=== PATIENT | female | born 1965 | race African-American/Black ===

== ENCOUNTER 2023-06-10 19:27 | Emergency (ER) | payer OTHER, SELFPAY ==
[2023-06-10 19:46] VITALS: BP 138/71; PULSE 103; RESP 18; TEMP 37.6; O2SAT 100
--- NOTE | 2023-06-10 19:48 | ED.GENADULT ---
HPI - General Adult General Chief complaint: Upper Respiratory Infection Stated complaint: cough,pain r side of chest Time Seen by Provider: 06/10/23 19:47 Source: patient, RN notes reviewed and old records reviewed Mode of arrival: ambulatory Limitations: no limitations History of Present Illness HPI narrative: 57-year-old female presents to the [facility] with complaints of a cough since yesterday. Patient states that she left work yesterday and went to bed Patient states that today she started with some right chest discomfort only when coughing. Denies any radiation of discomfort. Denies any shortness of breath. Reports that she had a fever 1 at 6:00 p.m. and took some ibuprofen. Has been taking Mucinex since yesterday when her symptoms started. Verbalizes concern for influenza Onset (ago): day(s) (1) Treatments prior to arrival: NSAID and other (Mucinex) Related Data Home Medications Medication Instructions Recorded Confirmed gabapentin 300 mg capsule 300 mg PO HS 06/10/23 06/10/23 hydrochlorothiazide 12.5 mg tablet 12.5 mg PO DAILY 06/10/23 06/10/23 lisinopril 10 mg tablet 10 mg PO DAILY 06/10/23 06/10/23 phentermine 37.5 mg capsule 37.5 mg PO DAILY 06/10/23 06/10/23 tirzepatide (weight loss) 2.5 2.5 mg subcut [id number] 06/10/23 06/10/23 mg/0.5 mL subcutaneous pen injector (Zepbound) Allergies Allergy/AdvReac Type Severity Reaction Status Date / Time No Known Allergies Allergy Verified 06/10/23 20:13 Review of Systems Review of Systems: All systems reviewed & are unremarkable except as noted in HPI and below Constitutional: Constitutional: Reports no additional constitutional complaints Eyes: Eyes: Reports no additional eye complaints ENT: Reports system reviewed and no additional complaints, except as documented Cardiovascular: Cardiovascular: Reports no additional cardiovascular complaints, Denies chest pain and Denies dyspnea Respiratory: Respiratory: Reports as per HPI, Denies chest congestion, Reports cough, Reports pain with cough and Denies dyspnea Gastrointestinal: Gastrointestinal: Reports no additional gastrointestinal complaints, Denies abdominal pain, Denies nausea and Denies vomiting Musculoskeletal: Musculoskeletal: Reports no additional musculoskeletal complaints Integumentary/Breasts: Skin/Breast: Reports system reviewed and no additional complaints, except as docu Neurologic: Reports system reviewed and no additional complaints, except as documented Psychiatric: Psychiatric: Reports no additional psychiatric complaints Allergic/Immunologic: Allergic/Immunologic: Reports no additional allergic/immunologic complaints PMFSH Past Medical History Medical History History of primary hypertension Hydrocephalus with operating shunt As a child Tibia fracture Orthopedic surgical repair Surgical History Surgical History (Updated 06/10/23 @ 20:30 by Teri Fan APRN) H/O: hysterectomy History of right hip replacement Hx of cholecystectomy Comments At the time of my signature, I reviewed and agree with the nursing past medical, surgical, social, and family history. There is no relevant family history pertinent to the patient complaint. Exam Const: General: cooperative, healthy appearing, comfortable, no acute distress, well developed, alert and well nourished Nutritional Appearance: well nourished and obese Orientation/consciousness: patient oriented x3 Limitations: no limitations HENMT: Head: normal to inspection Ears: hearing grossly normal bilaterally, external ears normal, TM's normal bilaterally, EAC's normal, mastoids normal and no periauricular adenopathy Face/Nose/Sinus: Normal external nose present, Normal nares present, Normal nasal mucous membranes and turbinates present, normal facial exam and face symmetric Face and sinus: normal facial exam and face symmetric Mouth: Yes Normal oral and palatal mucosa pres
== END 2023-06-10 20:20 | disposition home or self-care (01) ==
PROVIDERS: Emergency Provider Nurse Practitioner; PCP Internal Medicine
DX: J10.1 Influenza due to other identified influenza virus with other respiratory manifestations (principal); Z20.822 Contact with and (suspected) exposure to COVID-19; I10 Essential (primary) hypertension; Z96.641 Presence of right artificial hip joint
CPT/HCPCS: 87426; 87804; 99213; G0463

== ENCOUNTER 2023-12-17 19:56 | Emergency (ER) | payer OTHER, SELFPAY ==
[2023-12-17 19:59] VITALS: BP 139/76; PULSE 61; RESP 20; TEMP 36.1; O2SAT 100
== END 2023-12-17 20:20 | disposition left against medical advice (07) ==
LOC: ANHED 21:12
PROVIDERS: PCP Internal Medicine
DX: R10.9 Unspecified abdominal pain (principal); R07.81 Pleurodynia
CPT/HCPCS: 99199

== ENCOUNTER 2023-12-18 17:49 | Emergency (ER) | payer OTHER, SELFPAY ==
[2023-12-18 17:53] VITALS: BP 133/54; PULSE 60; RESP 14; TEMP 36.6; O2SAT 100
== END 2023-12-18 19:37 | disposition left against medical advice (07) ==
LOC: ANHED 19:36
PROVIDERS: Emergency Provider Physician Assistant; PCP Internal Medicine
DX: R10.9 Unspecified abdominal pain (principal)
CPT/HCPCS: 99199

== ENCOUNTER 2023-12-19 20:26 | Emergency (ER) | payer OTHER, MEDICAID, SELFPAY ==
--- NOTE | ~2023-12-19 | CT_ITS ---
CT abdomen pelvis wo con Ordering provider: Christine Payne MD History: 58 years Female with . bilateral flank pain . Comparison: None. Technique: CT abdomen and pelvis without IV and without oral contrast. Automated exposure control and iterative reconstruction technique were employed. The dose-length product was 849.07 mGy-cm. Findings: VISUALIZED LOWER CHEST: Calcification in the pericardium on the left side UPPER ABDOMINAL ORGANS: Liver: Normal. Gallbladder: Status post cholecystectomy. Spleen: Normal. Stomach/duodenum: Normal. Pancreas: Normal. Adrenals: Normal. Kidneys: Normal. PELVIC ORGANS: The bladder is underfilled. BOWEL AND MESENTERY: Colon: No evidence of diverticulitis. Appendix is not demonstrated. Fecal material is seen in the col on suggestive of constipation. Small Bowel: Normal. No obstruction. Peritoneum/mesentery: No free air or free fluid. No mesenteric lymphadenopathy. Catheter is seen entering anteriorly and the tipseen in the left side of the pelvis. RETROPERITONEUM: Normal aorta. No retroperitoneal lymphadenopathy. MUSCULOSKELETAL: Superficial soft tissues: Small fat-containing umbilical hernia. Otherwise, The superficial soft tiss ues are normal. Bones: Age appropriate degenerative changes of the spine. Right hip arthroplasty. IMPRESSION: 1. No acute abdominal process with no evidence of appendicitis, diverticulitis or intestinal obstruc tion. 2. Constipation Reviewed, dictated and finalized at location A. IMPRESSION: 1. No acute abdominal process with no evidence of appendicitis, diverticulitis or intestinal obstruction. 2. Constipation
[2023-12-19 20:41] VITALS: BP 140/72; PULSE 64; RESP 15; TEMP 36.6; O2SAT 100
[2023-12-19 20:59] LABS: Basophils Percent Auto 0.6 % (0.2-1.2); Eosinophils Absolute Auto 0.1 K/mm3 (0-0.3); Eosinophils Percent Auto 1.4 % (0-4.4); Hematocrit 36.6 % (37.0-47.0); Hemoglobin 11.8 g/dL (12.0-15.0); Immature Granulocyte Absolute 0.01 K/mm3 (0.00-0.031); Immature Granulocyte Percent A 0.1 % (0-0.5); Lymphocytes Absolute Auto 2.89 K/mm3 (0.9-3.2); Lymphocytes Percent Auto 41.5 % (18.3-44.2); Mean Corpuscular HGB Conc 32.2 g/dl (32-36); Mean Corpuscular Hemoglobin 28.5 pg (26-34); Mean Corpuscular Volume 88.4 fl (80-100); Mean Platelet Volume 11.8 fl (7.4-10.4); Monocytes Absolute Auto 0.3 K/mm3 (0.1-0.6); Monocytes Percent Auto 4.9 % (2.6-8.5); Neutrophils Absolute Auto 3.6 K/mm3 (1.3-6.7); Neutrophils Percent Auto 51.5 % (45.5-73.1); Platelet Count Result 239 k/mm3 (150-375); Red Blood Count 4.14 M/mm3 (4.2-5.4); Red Cell Distribution Width 14.6 % (11.5-14.5)
--- NOTE | 2023-12-19 21:02 | ED.ABDPAIN ---
HPI - Abdominal Pain General Chief Complaint: Urogenital-Female Stated Complaint: Thinks there is something wrong with her kidneys Time Seen by Provider: 12/19/23 20:38 History of Present Illness HPI narrative: Patient has been having intermittent bilateral flank pain for the last month, mostly with Tylenol, she went to an urgent care today who told her that in there might be something wrong with her kidneys and to come to the ER. no dysuria symptoms. No fevers or chills or nausea or vomiting. Does have history of a [employer] shunt, no headache Related Data Home Medications Medication Instructions Recorded Confirmed gabapentin 300 mg capsule 300 mg PO HS 06/10/23 06/10/23 hydrochlorothiazide 12.5 mg tablet 12.5 mg PO DAILY 06/10/23 06/10/23 lisinopril 10 mg tablet 10 mg PO DAILY 06/10/23 06/10/23 phentermine 37.5 mg capsule 37.5 mg PO DAILY 06/10/23 06/10/23 tirzepatide (weight loss) 2.5 2.5 mg subcut [id number] 06/10/23 06/10/23 mg/0.5 mL subcutaneous pen injector (Zepbound) Allergies Allergy/AdvReac Type Severity Reaction Status Date / Time No Known Allergies Allergy Verified 12/18/23 17:56 Review of Systems Review of Systems: All systems reviewed & are unremarkable except as noted in HPI and below PMFSH Past Medical History Medical History History of primary hypertension Hydrocephalus with operating shunt As a child Tibia fracture Orthopedic surgical repair Surgical History Surgical History (Updated 06/10/23 @ 20:30 by Teri Fan APRN) H/O: hysterectomy History of right hip replacement Hx of cholecystectomy Exam Narrative: EXAMINATION OF ORGAN SYSTEMS/BODY AREAS: Constitutional: Vital signs per nursing GENERAL:[No acute distress, non-toxic appearing.] HEAD: Normal with no signs of head trauma. EYES: EOMI, conjunctiva normal ENT: Hearing grossly intact LUNGS: Nonlabored breathing. HEART: [Regular rate and rhythm] ABD: [Soft], [nontender to palpation]; no CVA tenderness EXT: Normal range of motion SKIN: [No rashes or lesions.] NEURO: [Alert and oriented x 3. No gross focal sensory or strength deficits.] PSYCH: Normal affect Course Vital Signs Vital signs: Vital Signs Temperature 98 F 12/19/23 20:41 Pulse Rate 64 12/19/23 20:41 Respiratory Rate 15 12/19/23 20:41 Blood Pressure 140/72 12/19/23 20:41 Pulse Oximetry 100 12/19/23 20:41 Oxygen Delivery Room Air 12/19/23 20:41 Temperature 98 F 12/19/23 20:41 Pulse Rate 76 12/19/23 22:40 Respiratory Rate 15 12/19/23 22:40 Blood Pressure 136/78 12/19/23 22:40 Pulse Oximetry 100 12/19/23 22:40 Oxygen Delivery Room Air 12/19/23 20:41 MDM - Abdominal Pain MDM Narrative Medical decision making narrative: 58-year-old female presents here with slight bilateral flank pain for the last month, goes away with Tylenol, denies any recent trauma, no dysuria. Labs without any acute abnormality, urinalysis did have a few WBCs however no bacteria and this may be from contamination with squamous cells, patient also denies any dysuria, CT abdomen / pelvis does not show any acute abnormality other than constipation. Findings discussed with patient, she already has stool softeners at home, stable for discharge with return precautions and follow-up to her PCP and patient agreeable to this plan. Lab Data 12/19/23 20:53 12/19/23 20:53 Labs: Lab Results 12/19/23 Range/Units 20:53 WBC 7.0 (4.5-10.0) K/mm3 RBC 4.14 L (4.2-5.4) M/mm3 Hgb 11.8 L (12.0-15.0) g/dL Hct 36.6 L (37.0-47.0) % MCV 88.4 (80-100) fl MCH 28.5 (26-34) pg MCHC 32.2 (32-36) g/dl RDW 14.6 H (11.5-14.5) % Plt Count 239 (150-375) k/mm3 MPV 11.8 H (7.4-10.4) fl Immature Gran % (Auto) 0.1 (0-0.5) % Neut % (Auto) 51.5 (45.5-73.1) % Lymph % (Auto) 41.5 (18.3-44.2) % [place] % (Auto) 4.9 (2.6-8.5) % Eos % (
[2023-12-19 21:06] LABS: Add Urine Microscopic? YES; Appearance Urine Clear (Clear); Bacteria Urine None Seen /hpf; Bilirubin Urine Negative (Negative); Blood Urine Negative (Negative); Color Urine Yellow (Yellow); Glucose Urine UA Negative (Negative); Ketones Urine Trace mg/dL (Negative); Leukocyte Esterase Ur 1+ LEU/UL (Negative); Nitrate Urine Negative (Negative); Non Pathogenic Casts 0-2; Protein Urine Negative (Negative); RBC Urine 0-2 /hpf (0-2); Specific Grav Ur 1.022 (1.001-1.035); Squamous Epithelial Cell Urine Occasional /hpf (Few)
[2023-12-19 21:12] LABS: Alanine Aminotransferase 13 U/L (6-35); Albumin Level 4.1 g/dL (3.5-5.1); Alkaline Phosphatase 47 U/L (38-126); Anion Gap 8 mmol/L (4-12); Aspartate Amino Transferase 20 U/L (14-36); Bilirubin,Total 0.3 mg/dL (0.2-1.3); Blood Urea Nitrogen 13 mg/dL (7-17); Calcium 8.9 mg/dL (8.4-10.2); Carbon Dioxide 29 mmol/L (22-30); Chloride 101 mmol/L (98-107); Estimated CRCL calculation 68 ml/min; Estimated Glomerular Filt Rate > 60; Glucose 93 mg/dL (65-110); Sodium 138 mmol/L (137-145)
[2023-12-19 22:40] VITALS: BP 136/78; PULSE 76; RESP 15; O2SAT 100
== END 2023-12-19 22:40 | disposition home or self-care (01) ==
PROVIDERS: Emergency Provider Emergency Medicine; PCP Internal Medicine
DX: R10.9 Unspecified abdominal pain (principal); Z96.641 Presence of right artificial hip joint; Z98.2 Presence of cerebrospinal fluid drainage device; Z90.49 Acquired absence of other specified parts of digestive tract; Z90.710 Acquired absence of both cervix and uterus; Z79.899 Other long term (current) drug therapy; K59.00 Constipation, unspecified
CPT/HCPCS: 36415; 74176; 80053; 81001; 85025; 87077; 87086; 87088; 87186; 99284